=== PATIENT | female | born 1995 | race Two or more races ===

== ENCOUNTER 2022-05-28 21:02 | Emergency (ER) | payer OTHER ==
[2022-05-28 21:29] VITALS: BP 122/74
== END 2022-05-28 22:58 | disposition left against medical advice (07) ==
LOC: ED 21:02
DX: Z53.21 Procedure and treatment not carried out due to patient leaving prior to being seen by health care provider (principal)

== ENCOUNTER 2023-03-23 15:59 | Outpatient (CLI) | payer OTHER ==
[2023-03-23 16:43] LABS: THYROID STIMULATING HORMONE 1.74 uIU/mL (0.34-5.60)
[2023-03-23 16:45] LABS: FREE T4 (FREE THYROXINE) 1.15 ng/dL (0.58-1.64)
[2023-03-23 16:49] LABS: PROLACTIN 12.65 ng/mL
[2023-03-23 17:11] LABS: FOLLICLE STIMULATING HORMONE 5.13 mIU/mL
== END 2023-03-23 16:00 | disposition home or self-care (01) ==
LOC: LAB 15:59
PROVIDERS: ATTEND Nurse Practitioner Obstetrics & Gynecology
DX: N92.1 Excessive and frequent menstruation with irregular cycle (principal)
CPT/HCPCS: 36415; 83001; 84146; 84439; 84443

== ENCOUNTER 2023-03-30 18:35 | Outpatient (CLI) | payer OTHER ==
--- NOTE | 2023-03-30 22:51 | Ultrasound Report ---
PROCEDURE: Pelvic w/Transvaginal INDICATIONS: FREQUENT AND EXCESSIVE MENSTRATION TECHNIQUE: Real-time scanning was performed of the pelvic organs, with image documentation. Additional endovagi nal scanning was necessary due to incomplete visualization of the adnexal and endometrial structures by transabdominal scanning. COMPARISON: None. FINDINGS: Uterus: Uterus is anteverted and normal in size at 7.8 x 3.8 x 4.8 cm. The myometrium is homogeneou s. The endometrium measures 7.9 mm in combined thickness. Ovaries: The right ovary measures 2.5 x 2.5 x 3.3 cm, with a calculated ovarian volume of 22.6 cc. The left ovary measures 3.5 x 2.5 x 3.0 cm, with a calculated ovarian volume of 13.5 cc. Convex focus of echogenicity is present within the right ovary measuring 2.9 x 2.8 x 3.2 cm. Other: No pathologic free abdominal or pelvic fluid. IMPRESSION: Complex right ovarian cysts, suspected to be hemorrhagic in nature. Reviewed by: Pamela Choi MD on 03/30/2023 10:49 PM PDT Approved by: Pamela Choi MD on 03/30/2023 10:49 PM PDT Station ID: [id number]
== END 2023-03-30 18:36 | disposition home or self-care (01) ==
LOC: DI 18:35
PROVIDERS: ATTEND Nurse Practitioner Obstetrics & Gynecology
DX: N92.1 Excessive and frequent menstruation with irregular cycle (principal); N83.291 Other ovarian cyst, right side

== ENCOUNTER 2024-01-17 13:10 | Emergency (ER) | payer OTHER ==
--- NOTE | 2024-01-17 13:57 | ED Physician Documentation ---
PD HPI HEENT - Stated complaint Stated Complaint: CANT SPEAK,DEHYDRATION - Chief complaint Chief Complaint: Resp - History obtained from History obtained from: Patient, Family - Additional information Additional information: 28-year-old female who is generally healthy at baseline presents with 3 days of primarily sore throat but also has cough, nasal congestion, fever, body aches, nausea and vomiting. She started with a itchy throat but it has been progressively more sore, her voice has been hoarse and somewhat muffled and she has had difficulty taking any p.o. due to the pain. She is worried about dehydration. She has not had drooling or difficulty breathing. She has been taking Mucinex without relief, is not able to take oral NSAIDs due to prior abdominal surgery. She states symptoms started after she returned from a trip to [place] with her friends but she states none of her other friends have been ill, no known sick contacts. Patient states she is up-to-date on all her regular vaccines. Review of Systems Constitutional: reports: Fever, Chills, Myalgias, Fatigue Eyes: reports: Reviewed and negative Ears: reports: Reviewed and negative Nose: reports: Rhinorrhea / runny nose, Congestion, Sinus pressure / pain Throat: reports: Sore throat, Swollen tonsils Cardiac: reports: Reviewed and negative Respiratory: reports: Cough GI: reports: Nausea, Vomiting. denies: Abdominal Pain, Abdominal Swelling : reports: Reviewed and negative Skin: reports: Reviewed and negative Musculoskeletal: reports: Reviewed and negative Neurologic: reports: Reviewed and negative Psychiatric: reports: Reviewed and negative Endocrine: reports: Reviewed and negative PD PAST MEDICAL HISTORY - Past Medical History Past Medical History: No - Past Surgical History Past Surgical History: Yes - Present Medications Home Medications: Ambulatory Orders Medication Instructions Recorded Confirmed Azithromycin [Zithromax] 250 mg PO UD 5 Days #6 tablet 01/17/24 - Allergies Allergies/Adverse Reactions: Allergies Allergy/AdvReac Type Severity Reaction Status Date / Time Penicillins Allergy Anaphylaxis Verified 01/17/24 13:28 - Social History Does the pt smoke?: Yes Smoking Status: Current every day smoker Does the pt drink ETOH?: Yes ETOH Use: Wine, Beer Does the pt have substance abuse?: No - Immunizations Immunizations are current?: Yes - POLST Patient has POLST: No PD ED PE NORMAL - Vitals Vital signs reviewed: Yes - General General: Alert and oriented X 3, No acute distress, Well developed/nourished - HEENT HEENT: Atraumatic, Ears normal, Moist mucous membranes, Other (Muffled voice. There is posterior pharyngeal swelling. No tonsillar swelling, no exudate. Uvula is midline. No trismus.) - Neck Neck: Supple, no meningeal sign, Other (Tender bilateral anterior lymphadenopathy) - Cardiac Cardiac: RRR, No murmur - Respiratory Respiratory: No respiratory distress, Clear bilaterally - Abdomen Abdomen: Normal bowel sounds, Soft, Non tender, Non distended - Derm Derm: Normal color, Warm and dry, No rash Results - Vitals Vitals: Vital Signs - 24 hr 01/17/24 01/17/24 13:19 15:35 Temperature 37.2 C 36.5 C Heart Rate 82 81 Respiratory 24 18 Rate Blood Pressure 128/70 119/65 O2 Saturation 98 100 Oxygen O2 Source Room air - Labs Labs: Laboratory Tests 01/17/24 01/17/24 01/17/24 14:00 14:00 14:34 WBC 13.9 H RBC 4.67 Hgb 12.9 Hct 39.4 MCV 84.4 MCH 27.6 MCHC 32.7 RDW 14.9 Plt Count 313 MPV 10.2 Neut # (Auto) 11.5 H Lymph # (Auto) 1.0 L [place] # (Auto) 1.3 H Eos # (Auto) 0.0 Baso # (Auto) 0.0 Absolute Nucleated RBC 0.00 Nucleated RBC % 0.0 Sodium 135 Potassium 3.8 Chloride 104 Carbon Dioxide 24 Anion Gap 7.0 BUN 9 Creatinine 0.7 Estimated GFR (MDRD) 100 Glucose 124 H Calcium 9.7 Nasal Influenza A H3 PCR DETECTED A Nasal Influenza B PCR NOT DETECTED Nasal RSV (PCR) NOT DETECTED Nasal SARS-CoV-2 (PCR) NOT DETECTED Group A Strep Rapid 01/17/24 14:36 WBC RBC Hgb Hct MCV MCH MCHC RDW Plt Count MPV Neut # (Auto) Lymph # (Auto) [place] # (Auto) Eos # (Auto) Baso # (Auto) Absolute Nucleated RBC Nucleated RBC % Sodium Potassium Chloride Carbon Dioxide Anion Gap BUN Creatinine Estimated GFR (MDRD) Glucose Calcium Nasal Influenza A H3 PCR Nasal Influenza B PCR Nasal RSV (PCR) Nasal SARS-CoV-2 (PCR) Group A Strep Rapid Negative PD Medical Decision Making - ED course Complexity details: reviewed results, re-evaluated patient, considered differential, d/w patient, d/w family ED course: 28-year-old female presented due to sore throat, painful swallow, URI type symptoms, nausea, poor p.o. intake as described in HPI. She is well-appearing here on physical exam, afebrile and nontoxic. She does have a slightly muffled and hoarse voice, but no signs of peritonsillar abscess on physical exam. She does have a erythematous posterior pharynx with mild generalized swelling, no tonsillar exudate and uvula is midline. Differentials considered included p eritonsillar abscess, strep throat, viral URI, COVID, flu, laryngitis among others We obtained lab work which shows a mildly elevated white blood cell count otherwise stable CBC and BMP. The patient was given a liter of IV fluids that she is not taking much p.o. recently, 50 mg of IV Toradol and 10 mg of IV Decadron. She had substantial improvement in her symptoms and now able to tolerate p.o. She has no drooling, no trismus, and I do believe she is stable for discharge home at this time. Her rapid strep test was negative but given her significant symptoms I am going to treat for possible strep the patient has allergy to penicillin, reported anaphylaxis therefore I will treat with azithromycin. Patient encouraged to continue Tylenol at home, she is not able to take oral NSAIDs due to prior abdominal surgery. I encouraged her to stay well-hydrated, suck on ice chips and drink cool drinks to help with swelling, and we reviewed return precautions in detail if she developed any unilateral swelling, drooling and unable to swallow, difficulty breathing or other concerns. Departure - Departure Disposition: 01 Home, Self Care Clinical Impression: Upper respiratory infection, acute Condition: Good Instructions: Sore Throats Self Care Prescriptions: Azithromycin [Zithromax] 250 mg PO UD 5 Days #6 tablet Comments: Please start the antibiotics as prescribed, and take Tylenol as needed for pain. Drink plenty of fluids, you can suck on ice chips as well to help with the sore throat. There are also [id number] throat sprays and may provide you some benefit. Your strep test here was negative but I am going to treat you for a throat infection given the significance of your symptoms. If you have worsening symptoms, or not able to open your mouth, turning her head, or you fee l like you cannot breathe or manage her secretions, please return to the ER. Forms: PCP List Discharge Date/Time: 01/17/24 15:35
[2024-01-17 14:06] LABS: BASOPHILS % (AUTO) 0.3 %; HCT - HEMATOCRIT 39.4 % (37.0-47.0); HGB - HEMOGLOBIN 12.9 g/dL (12.0-16.0); MEAN CORPUSCULAR HEMOGLOBIN 27.6 pg (27.0-31.0); MEAN CORPUSCULAR HGB CONC 32.7 g/dL (32.0-36.0); MEAN CORPUSCULAR VOLUME 84.4 fL (81.0-99.0); MEAN PLATELET VOLUME 10.2 fL (7.9-10.8); MONOCYTES # (AUTO) 1.3 10^3/uL (0.0-1.0); MONOCYTES % (AUTO) 9.5 %; NEUTROPHILS # (AUTO) 11.5 10^3/uL (1.5-6.6); NEUTROPHILS % (AUTO) 82.8 %; PLT - PLATELET COUNT 313 10^3/uL (130-450); RED BLOOD COUNT 4.67 10^6/uL (4.20-5.40); RED CELL DISTRIBUTION WIDTH 14.9 % (12.0-15.0); WHITE BLOOD COUNT 13.9 x10^3/uL (4.8-10.8)
[2024-01-17 14:20] LABS: CALCIUM 9.7 mg/dL (8.5-10.3); CREATININE 0.7 mg/dL (0.6-1.3); POTASSIUM 3.8 mmol/L (3.5-4.5)
[2024-01-17] MEDS: SODIUM CHLORIDE 0.9% 1,000 ML IV STA (14:27)
[2024-01-17] MEDS: KETOROLAC 30 MG/ML VIAL IVP STA (14:29)
[2024-01-17] MEDS: DEXAMETHASONE 10 MG/ML VIAL IVP STA (14:48)
[2024-01-17 15:01] LABS: RAPID STREP SCREEN Negative (Negative)
[2024-01-17 15:35] LABS: INFLUENZA A H3- RESP PCR PANEL DETECTED; INFLUENZA B - RESP PCR PANEL NOT DETECTED; RSV- RESP PCR PANEL NOT DETECTED; SARS-CoV-2 -RESP PCR PANEL NOT DETECTED
[2024-01-17 15:41] VITALS: BP 119/65; O2SAT 100
--- NOTE | 2024-01-19 13:30 | ED Physician Documentation ---
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 It is back to beta-lactamase negative. The patient has been seen for sore throat and viral type illness but had a concerns that are both sore throat and was treated empirically for possible strep with azithromycin. She was ordered to penicillin. I called her today with this result. Before that I did look on up-to-date with regard to treatment algorithm. Up-to-date reference suggest this is typically a carrier state and does not necessarily need to be treated particularly as long as they are not having meningitic type symptoms or signs of sepsis. Consideration of treatment or prophylactic treatment if in the setting of an outbreak of meningitis. With that background reference, I did call and talk to the patient. She states she is improving slowly over the last couple of days. Her throat is much less sore and she is able to talk. No headache no vomiting and no stiff neck stiffness. She states she feels she is improving overall. She has had still some fever and chills for which she is using Tylenol. She had not been around other people sick to the degree of meningitis type symptoms. She apparently had visited friends in [place] or such but they had just URI type symptoms. This was according to the chart note from 2 days ago with regard to the exposures. Talking to her personally just now she is improving and does not have the major symptoms and does not sound meningitic. As such I would go with the nontreatment in particular for that and manage it did ease but azithromycin is a a second line choice so is somewhat covered anyway. No change in treatment needed.
== END 2024-01-17 15:35 | disposition home or self-care (01) ==
LOC: ED 13:10
DX: J06.9 Acute upper respiratory infection, unspecified (principal); B96.89 Other specified bacterial agents as the cause of diseases classified elsewhere; F17.200 Nicotine dependence, unspecified, uncomplicated
CPT/HCPCS: 36415; 80048; 85025; 87070; 87077; 87430; 87637; 96374; 96375; 99283